=== PATIENT | male | born 1975 | race Caucasian/White ===

== ENCOUNTER 2016-10-17 20:38 | Emergency (ER) | payer BC ==
[2016-10-17] MEDS ORDERED: ONDANSETRON HCL INJ/PF 4 MG/2 ML SDV IV ONE (21:22)
[2016-10-17] MEDS ORDERED: MORPHINE SULFATE 10 MG/ML INJ IV ONE (21:22)
[2016-10-17] MEDS ORDERED: NORMAL SALINE 1000 ML 1,000 ML IV ONE (21:22)
--- NOTE | 2016-10-17 21:27 | ER Document Report ---
ED General - General Chief Complaint: Shortness Of Breath Stated Complaint: DIFFICULTY BREATHING,COUGHING BLOOD Time Seen by Provider: 10/17/16 21:14 Notes: Patient is a 41-year-old male comes in one department for chief complaint of pain in his upper chest area after swallowing a piece of a chip. Started at 1800. He states that he began having persistent discomfort and then he vomited. The emesis did not have the obvious chip in it, it was emesis with some mixed in blood. Patient states he felt slightly better afterwards but continued to have some symptoms and came for evaluation. He states he hurts in his lower back now, he states he feels very nauseated. He denies any injury, denies any daily medicines or surgeries, denies any past medical history. TRAVEL OUTSIDE OF THE [place] IN LAST 30 DAYS: No - Related Data Allergies/Adverse Reactions: No Known Allergies Allergy (Verified 10/17/16 23:14) Home Medications: Current Home Medications No Home Medications 10/17/16 [History] Past Medical History - General Information source: Patient - Social History Smoking Status: Never Smoker Frequency of alcohol use: Occasional Drug Abuse: None Lives with: Spouse/Significant other Family History: Reviewed & Not Pertinent Patient has suicidal ideation: No Patient has homicidal ideation: No - Medical History Medical History: Negative - Past Medical History Cardiac Medical History: Denies: Hx Coronary Artery Disease, Hx Heart Attack, Hx Hypertension Pulmonary Medical History: Denies: Hx Asthma, Hx Bronchitis, Hx COPD, Hx Pneumonia Neurological Medical History: Denies: Hx Cerebrovascular Accident, Hx Seizures Renal/ Medical History: Denies: Hx Peritoneal Dialysis Musculoskeltal Medical History: Denies Hx Arthritis Surgical Hx: Negative - Immunizations Hx Diphtheria, Pertussis, Tetanus Vaccination: Yes Review of Systems - Review of Systems Constitutional: No symptoms reported EENT: See HPI Cardiovascular: See HPI Respiratory: No symptoms reported Gastrointestinal: See HPI Genitourinary: No symptoms reported Male Genitourinary: No symptoms reported Musculoskeletal: No symptoms reported Skin: No symptoms reported Hematologic/Lymphatic: No symptoms reported Neurological/Psychological: No symptoms reported Physical Exam - Vital signs Vitals: Temp Pulse Resp BP Pulse Ox 98 F 75 20 157/96 H 100 10/17/16 20:40 10/17/16 20:40 10/17/16 20:40 10/17/16 20:40 10/17/16 20:40 Interpretation: Normal - General General appearance: Other - Patient slightly pale, appears slightly uncomfortable In distress: Mild - HEENT Head: Normocephalic, Atraumatic Eyes: Normal Conjunctiva: Normal Extraocular movements intact: Yes Eyelashes: Normal Pupils: PERRL Nasal: Normal Mouth/Lips: Normal Mucous membranes: Normal Pharynx: Normal Neck: Normal - Respiratory Respiratory status: No respiratory distress Chest status: Nontender Breath sounds: Normal. No: Decreased air movement, Wheezing Chest palpation: Normal - Cardiovascular Rhythm: Regular. No: Tachycardia Heart sounds: Normal auscultation, S1 appreciated, S2 appreciated Murmur: No - Abdominal Inspection: Normal Distension: No distension Bowel sounds: Normal Tenderness: Tender - Mildly tender in the general upper abdominal area Organomegaly: No organomegaly - Back Back: Normal, Tender - There is mild right mid to lower paralumbar muscular tenderness, no other abnormalities noted, no CVA tenderness - Extremities General upper extremity: Normal inspection, Nontender, Normal color, Normal ROM , Normal temperature General lower extremity: Normal inspection, Nontender, Normal color, Normal ROM , Normal temperature, Normal weight bearing. No: Ninoska's sign - Neurological Neuro grossly intact: Yes Cognition: Normal Orientation: AAOx4 June Coma Scale Eye Opening: Spontaneous June Coma Scale Verbal: Oriented Bruno Coma Scale Motor: Obeys Commands June Coma Scale Total: 15 Speech: Normal Motor strength normal: LUE, RUE, LLE, RLE Sensory: Normal - Skin Skin Temperature: Warm Skin Moisture: Dry Skin Color: Pale Course - Re-evaluation Re-evalutation: Initially patient with benign sounding symptoms with one emesis with a small amount of blood after discomfort from swallowing. I entered the room and patient was vomiting a large amount of emesis which appeared to be mainly blood. He filled up an entire emesis bag full of blood. Ordering chest x-ray, medications to prevent additional vomiting, workup. Type and screen performed. On reevaluation patient is improved in appearance, we'll continue to monitor closely. No hypotension or tachycardia. Chest x-ray unremarkable, CBC shows leukocytosis which is nonspecific with his vomiting, chemistry and urine unremarkable despite reported flank pain. Discussed with Dr. Mendes, recommends octreotide along with Protonix, prepare blood units in case he begins hematemesis again or becomes unstable, and transfer. No GI available for 3 days at this facility. 10/18/16 00:[address] Springer, working with Dr. Calero, patient will be transferred to [facility]. Patient and significant other in agreement with this plan. 10/18/16 04:14 Patient has been reevaluated twice more, remains unchanged, not tachycardic, no hypotension, after medications patient has become comfortable and has not vomited again. Still pending transfer. - Vital Signs Vital signs: Temp Pulse Resp BP Pulse Ox 98.8 F 75 19 116/73 93 10/18/16 02:00 10/17/16 20:40 10/18/16 04:01 10/18/16 04:00 10/18/16 04:01 - Laboratory Result Diagrams: 10/17/16 21:40 10/17/16 22:37 Laboratory results interpreted by me: 10/17/16 10/17/16 10/17/16 21:40 21:40 22:37 WBC 20.4 H Abs Neuts (Manual) 15.9 H BUN 24 H Total Protein 6.2 L Urine Ketones Crossmatch See Detail 10/17/16 23:10 WBC Abs Neuts (Manual) BUN Total Protein Urine Ketones TRACE H Crossmatch Discharge - Discharge Clinical Impression: Upper GI bleeding Hematemesis Qualifiers: Nausea presence: with nausea Qualified Code(s): K92.0 - Hematemesis Condition: Stable Disposition: [facility]
[2016-10-17 21:55] LABS: HEMATOCRIT 46.7 % (37.9-51.0); HEMOGLOBIN 16.1 g/dL (13.5-17.0); HGB HCT DIFFERENCE 1.6; MEAN CORPUSCULAR HEMOGLOBIN 31.5 pg (27.0-33.4); MEAN CORPUSCULAR HGB CONC 34.6 g/dL (32.0-36.0); MEAN CORPUSCULAR VOLUME 91 fl (80-97); RED BLOOD COUNT 5.13 10^6/uL (4.35-5.55); RED CELL DISTRIBUTION WIDTH 12.9 % (11.5-14.0); WHITE BLOOD COUNT 20.4 10^3/uL (4.0-10.5)
[2016-10-17 22:07] LABS: PROTHROMBIN TIME 12.8 SEC (11.4-15.4)
[2016-10-17 22:08] LABS: PARTIAL THROMBOPLASTIN TIME 26.9 SEC (23.5-35.8)
[2016-10-17] MEDS ORDERED: PANTOPRAZOLE SODIUM 40 MG VIAL IV ONE (22:16)
[2016-10-17 22:19] LABS: BAND NEUTROPHILS % (MANUAL) 4 % (3-5); BASOPHILS % (MANUAL) 0 % (0-2); EOSINOPHILS % (MANUAL) 1 % (0-6); LYMPHOCYTES % (MANUAL) 14 % (13-45); TOTAL CELLS COUNTED 100
[2016-10-17] MEDS ORDERED: PANTOPRAZOLE SODIUM 40 MG VIAL IV PRN (22:22)
[2016-10-17 22:23] LABS: PLATELET CLUMPS PRESENT; TOXIC GRANULATION 1+
[2016-10-17 23:04] LABS: ALANINE AMINOTRANSFERASE 67 U/L (21-72); ALBUMIN 3.7 g/dL (3.5-5.0); ALKALINE PHOSPHATASE 45 U/L (38-126); ANION GAP 11 (5-19); ASPARTATE AMINO TRANSFERASE 40 U/L (17-59); BILIRUBIN,DIRECT 0.4 mg/dL (0.0-0.4); BILIRUBIN,TOTAL 0.8 mg/dL (0.2-1.3); BLOOD UREA NITROGEN 24 mg/dL (7-20); CALCIUM 8.7 mg/dL (8.4-10.2); CARBON DIOXIDE 25 mmol/L (22-30); CHLORIDE 106 mmol/L (98-107); CREATININE RESULT 0.97 mg/dL (0.52-1.25); GLUCOSE 104 mg/dL (75-110); POTASSIUM 4.2 mmol/L (3.6-5.0); SODIUM 141.7 mmol/L (137-145); TOTAL PROTEIN 6.2 g/dL (6.3-8.2)
[2016-10-17 23:32] LABS: APPEARANCE,URINE SLIGHTLY-CLOUDY; BILIRUBIN,URINE NEGATIVE (NEGATIVE); GLUCOSE, URINE NEGATIVE (NEGATIVE); KETONES,URINE TRACE mg/dL (NEGATIVE); LEUKOCYTE ESTERASE,URINE NEGATIVE (NEGATIVE); NITRITE,URINE NEGATIVE (NEGATIVE); PROTEIN,URINE NEGATIVE (NEGATIVE); UROBILINOGEN,URINE NEGATIVE mg/dL (<2.0)
[2016-10-17] MEDS ORDERED: NORMAL SALINE 250 ML IV PRN ×2 (23:50)
[2016-10-18] MEDS ORDERED: OCTREOTIDE ACETATE INJ/PF 100 MCG/1 ML SDV IV ONE (00:05)
[2016-10-18] MEDS ORDERED: OCTREOTIDE ACETATE INJ/PF 100 MCG/1 ML SDV ONE (00:58)
[2016-10-18 15:00] VITALS: BP 126/88
== END 2016-10-18 15:05 | disposition short-term general hospital (02) ==
LOC: ER 20:38
DX: K92.2 Gastrointestinal hemorrhage, unspecified (principal); K92.0 Hematemesis; R07.9 Chest pain, unspecified; M54.5 Low back pain; D72.829 Elevated white blood cell count, unspecified
CPT/HCPCS: 99285; 96361; 96374; 96375; 86900; 86901; 36415; 86850; 85025; 85610; 85730; 80053; 81001; 86920; 71010; J2270; J2354; S0164; J2405; J7030

== ENCOUNTER → 2017-08-08 | Outpatient (CLI) | payer BC ==
--- NOTE | 2017-08-08 16:32 | RADIOLOGY REPORT (SQ) ---
EXAM DESCRIPTION: MRI LT UPPER JOINT WITHOUT COMPLETED DATE/TIME: 08/08/2017 2:18 pm REASON FOR STUDY: CERVICAL RADICULOPATHY/ LEFT SHOULDER PAIN M54.12 RADICULOPATHY, CERVICAL REGION M25.512 PAIN IN LEFT SHOULDER COMPARISON: None. TECHNIQUE: Left shoulder images acquired and stored on PACS. Multiplanar imaging to include fat sens itive sequences such as T1, water sensitive sequences such as FST2/STIR, cartilage sensitive sequence s such as FSPD/gradient-echo sequences. LIMITATIONS: None. FINDINGS: BONE MARROW AND CORTEX: No worrisome bone lesions or marrow replacement. No occult fractur es. JOINT OR BURSAL EFFUSION: No significant joint or bursal fluid. No suggestion of loose bodies. GLENO-HUMERAL ARTICULATION: There is mild posterior subluxation of the humeral head. Diffuse osteoph ytes about the humeral head are present. Some mild irregularity about the glenoid cartilage is prese nt. ACROMION AND AC JOINT: No down-sloping or distal spur. Sub-acromial space maintained. Mild AC lakia nt arthropathy. ROTATOR CUFF AND INTERVAL: Mild thickening and increased signal in supraspinatus tendon, consistent w ith tendinitis. The remainder of the rotator cuff is normal in appearance. No evidence of rotator c uff tear. No rotator interval tear. No rotator interval thickening to suggest adhesive capsulitis. LABRUM AND BICEPS LABRAL COMPLEX: The intra-articular portion of the long head of the biceps tendon is somewhat enlarged as well as increased in signal. There are posterior as well as inferior and callaway perior tears of the labrum. The superior labral tear appears to extend into the long head of the bic eps tendon. There is paralabral cyst formation along the inferior aspect of the labrum. PERIARTICULAR AND ADJACENT SOFT TISSUES: No masses or abnormal nodes. OTHER: No other significant finding. IMPRESSION: 1. Moderate arthrosis of the glenohumeral joint 2. Multiple labral tears as described with likely superior labral tear extending into the biceps lab ral anchor 3. Tendinosis of the supraspinatus. 4. Tendinosis of the intra-articular portion of the long head of the biceps tendon. TECHNICAL DOCUMENTATION: JOB ID: [id number] [employer]- All Rights Reserved Reading location - IP/workstation name: [email or web address] [id number]
--- NOTE | 2017-08-08 16:32 | RADIOLOGY REPORT (SQ) ---
EXAM DESCRIPTION: MRI CERVICAL SPINE WITHOUT COMPLETED DATE/TIME: 08/08/2017 2:18 pm REASON FOR STUDY: CERVICAL RADICULOPATHY/ LEFT SHOULDER PAIN M54.12 RADICULOPATHY, CERVICAL REGION M25.512 PAIN IN LEFT SHOULDER COMPARISON: None. TECHNIQUE: Sagittal and Axial imaging includes T1, T2, STIR and gradient echo sequences. LIMITATIONS: No comparison radiographs were available. FINDINGS: ALIGNMENT: Normal. VERTEBRAE: Intact. Multilevel uncovertebral hypertrophy. BONE MARROW: Normal. No marrow replacement or reactive changes. DISCS: Mild disc desiccation and loss of height is seen at all levels, most significantly affecting C 4/5. HARDWARE: None in the spine. CORD AND BASE OF BRAIN: Normal in size and signal intensity. SOFT TISSUES: No soft tissue masses. C1-C2: No significant central canal stenosis. C2-C3: Disc osteophyte complex asymmetric to the right results an mild effacement of the ventral thec al sac and mild right neural foraminal narrowing. The left neural foramen remains patent. C3-C4: Disc osteophyte complex, asymmetric to the left results in moderate to severe left neural fora monica narrowing. C4-C5: Disc osteophyte complex results an moderate bilateral neural foraminal narrowing. C5-C6: Disc osteophyte complex results in severe left and moderate right neural foraminal narrowing w ith effacement of the ventral thecal sac and central canal narrowing measuring on the order of 8.2 mm in AP dimension. C6-C7: Disc osteophyte complex asymmetric to the left results an moderate to severe left neural natalie inal narrowing and contouring of the left ventral cervical cord. This results in near complete effac ement of the CSF signal surrounding the cord at this level. C7-T1: No significant spinal stenosis or exit foraminal stenosis. UPPER THORACIC: Incompletely imaged. No significant spinal stenosis or exit foraminal stenosis. OTHER: No other significant finding. IMPRESSION: Multilevel cervical spondylotic change with moderate to severe neural foraminal narrowin g, most significantly affecting the left C3/4, C5/6, and C6/7 levels. Additionally, the associated d isc osteophyte complexes results and contouring and posterior displacement of the spinal cord at thes e levels. No syrinx. TECHNICAL DOCUMENTATION: JOB ID: [id number]- All Rights Reserved Reading location - IP/workstation name: [email or web address]
== END ==
LOC: RAD 13:09
PROVIDERS: ATTEND Nurse Practitioner Family
DX: M54.12 Radiculopathy, cervical region (principal); M25.512 Pain in left shoulder; M19.011 Primary osteoarthritis, right shoulder
CPT/HCPCS: 72141

== ENCOUNTER → 2017-09-24 | Outpatient (CLI) | payer BC ==
[2017-09-24 08:55] LABS: ABSOLUTE EOSINOPHILS # (AUTO) 0.1 10^3/uL (0.0-0.6); ABSOLUTE LYMPHOCYTES (AUTO) 2.5 10^3/uL (0.5-4.7); ABSOLUTE MONOCYTES (AUTO) 0.8 10^3/uL (0.1-1.4); ABSOLUTE NEUT (AUTO) 2.8 10^3/uL (1.7-8.2); BASOPHILS % (AUTO) 0.4 % (0-2); HEMATOCRIT 49.9 % (37.9-51.0); HEMOGLOBIN 17.7 g/dL (13.5-17.0); MEAN CORPUSCULAR HEMOGLOBIN 31.6 pg (27.0-33.4); MEAN CORPUSCULAR HGB CONC 35.5 g/dL (32.0-36.0); MEAN CORPUSCULAR VOLUME 89 fl (80-97); MONOCYTES % (AUTO) 13.1 % (3-13); PLATELET COUNT 246 10^3/uL (150-450); RED CELL DISTRIBUTION WIDTH 13.3 % (11.5-14.0); SEGMENTED NEUTROPHILS % (AUTO) 44.5 % (42-78); TOTAL CELLS COUNTED % (AUTO) 100 %; WHITE BLOOD COUNT 6.3 10^3/uL (4.0-10.5)
[2017-09-24 08:57] LABS: APPEARANCE,URINE CLEAR; BILIRUBIN,URINE NEGATIVE (NEGATIVE); COLOR,URINE YELLOW; GLUCOSE, URINE NEGATIVE (NEGATIVE); KETONES,URINE NEGATIVE (NEGATIVE); LEUKOCYTE ESTERASE,URINE NEGATIVE (NEGATIVE); NITRITE,URINE NEGATIVE (NEGATIVE); PROTEIN,URINE NEGATIVE (NEGATIVE); URINE SPECIFIC GRAVITY 1.029; UROBILINOGEN,URINE NEGATIVE mg/dL (<2.0)
[2017-09-24 09:36] LABS: ALANINE AMINOTRANSFERASE 69 U/L (21-72); ALBUMIN 4.4 g/dL (3.5-5.0); ALKALINE PHOSPHATASE 53 U/L (38-126); ANION GAP 10 (5-19); ASPARTATE AMINO TRANSFERASE 38 U/L (17-59); BILIRUBIN,DIRECT 0.3 mg/dL (0.0-0.4); BILIRUBIN,TOTAL 0.6 mg/dL (0.2-1.3); BLOOD UREA NITROGEN 20 mg/dL (7-20); CARBON DIOXIDE 33 mmol/L (22-30); CHLORIDE 102 mmol/L (98-107); CHOLESTEROL 192.94 mg/dL (0-200); GLUCOSE 88 mg/dL (75-110); POTASSIUM 4.4 mmol/L (3.6-5.0); TOTAL PROTEIN 6.7 g/dL (6.3-8.2); TRIGLYCERIDES 209 mg/dL (<150)
[2017-09-24 09:59] LABS: DIRECT LDL 96 mg/dL (<100)
[2017-09-24 10:00] LABS: VLDL CHOLESTEROL 41.8 mg/dL (10-31)
== END ==
LOC: OD 07:48
PROVIDERS: ATTEND Family Medicine
DX: E78.2 Mixed hyperlipidemia (principal); I10 Essential (primary) hypertension; K21.0 Gastro-esophageal reflux disease with esophagitis; Z68.31 Body mass index [BMI] 31.0-31.9, adult
CPT/HCPCS: 36415; 80053; 80061; 81001; 82306; 83036; 84443; 85025

== ENCOUNTER → 2018-06-18 | Outpatient (CLI) | payer BC ==
[2018-06-18 08:54] LABS: ABSOLUTE EOSINOPHILS # (AUTO) 0.2 10^3/uL (0.0-0.6); ABSOLUTE LYMPHOCYTES (AUTO) 2.5 10^3/uL (0.5-4.7); ABSOLUTE MONOCYTES (AUTO) 0.8 10^3/uL (0.1-1.4); ABSOLUTE NEUT (AUTO) 2.9 10^3/uL (1.7-8.2); BASOPHILS % (AUTO) 0.5 % (0-2); EOSINOPHILS % (AUTO) 2.9 % (0-6); HEMATOCRIT 49.6 % (37.9-51.0); HEMOGLOBIN 17.4 g/dL (13.5-17.0); LYMPHOCYTES % (AUTO) 38.8 % (13-45); MEAN CORPUSCULAR HGB CONC 35.2 g/dL (32.0-36.0); MEAN CORPUSCULAR VOLUME 91 fl (80-97); MONOCYTES % (AUTO) 12.1 % (3-13); PLATELET COUNT 254 10^3/uL (150-450); RED BLOOD COUNT 5.46 10^6/uL (4.35-5.55); RED CELL DISTRIBUTION WIDTH 13.2 % (11.5-14.0); SEGMENTED NEUTROPHILS % (AUTO) 45.7 % (42-78); TOTAL CELLS COUNTED % (AUTO) 100 %; WHITE BLOOD COUNT 6.4 10^3/uL (4.0-10.5)
[2018-06-18 08:59] LABS: APPEARANCE,URINE CLEAR; BILIRUBIN,URINE NEGATIVE (NEGATIVE); COLOR,URINE YELLOW; GLUCOSE, URINE NEGATIVE (NEGATIVE); KETONES,URINE NEGATIVE (NEGATIVE); LEUKOCYTE ESTERASE,URINE NEGATIVE (NEGATIVE); NITRITE,URINE NEGATIVE (NEGATIVE); PROTEIN,URINE NEGATIVE (NEGATIVE); URINE SPECIFIC GRAVITY 1.023; UROBILINOGEN,URINE NEGATIVE mg/dL (<2.0)
[2018-06-18 09:23] LABS: ALANINE AMINOTRANSFERASE 86 U/L (21-72); ALBUMIN 4.6 g/dL (3.5-5.0); ALKALINE PHOSPHATASE 57 U/L (38-126); ANION GAP 8 (5-19); ASPARTATE AMINO TRANSFERASE 48 U/L (17-59); BILIRUBIN,DIRECT 0.2 mg/dL (0.0-0.4); BILIRUBIN,TOTAL 0.7 mg/dL (0.2-1.3); BLOOD UREA NITROGEN 17 mg/dL (7-20); CALCIUM 10.1 mg/dL (8.4-10.2); CARBON DIOXIDE 28 mmol/L (22-30); CHLORIDE 105 mmol/L (98-107); CHOLESTEROL 227.66 mg/dL (0-200); GLUCOSE 90 mg/dL (75-110); POTASSIUM 4.8 mmol/L (3.6-5.0); SODIUM 140.8 mmol/L (137-145); TOTAL PROTEIN 7.1 g/dL (6.3-8.2); TRIGLYCERIDES 169 mg/dL (<150)
[2018-06-18 09:33] LABS: DIRECT LDL 138 mg/dL (<100)
[2018-06-18 09:39] LABS: VLDL CHOLESTEROL 33.8 mg/dL (10-31)
== END ==
LOC: OD 08:07
PROVIDERS: ATTEND Family Medicine
DX: E78.2 Mixed hyperlipidemia (principal); I10 Essential (primary) hypertension; K21.0 Gastro-esophageal reflux disease with esophagitis; Z68.32 Body mass index [BMI] 32.0-32.9, adult
CPT/HCPCS: 36415; 80053; 80061; 81001; 83036; 84443; 85025

== ENCOUNTER → 2020-07-02 | Outpatient (CLI) | payer BC ==
[~2020-07-02] MED LIST: COVID-19 VACCINE (PFIZER)/PF 30 MCG/0.3 ML VIAL IM ONE; EPINEPHRINE INJ/PF 1 MG/1 ML AMPULE IM PRN
== END ==
LOC: EMPHEALTH 10:46
PROVIDERS: ATTEND Internal Medicine
DX: Z23 Encounter for immunization (principal)
CPT/HCPCS: 91300